=== PATIENT | female | born 1950 | race Two or more races ===

== ENCOUNTER 2021-09-27 10:30 | Inpatient (IN) | payer MEDICAID ==
[~2021-09-27] VITALS: Ht 157.5 cm; Wt 64.9 kg
[2021-09-27] MEDS ORDERED: APIX5TAB PO (11:12)
[2021-09-27 11:22] LABS: BASOPHILS % (AUTO) 0.7 % (0.0-2.0); HEMATOCRIT 31 % (33-45); HEMOGLOBIN 10.4 g/dL (11.5-14.8); LYMPHOCYTES # (AUTO) 1.2 K/uL (0.8-4.8); LYMPHOCYTES % (AUTO) 16.1 % (20.0-44.0); MEAN CORPUSCULAR HGB CONC 34 g/dl (31.0-36.0); MEAN CORPUSCULAR VOLUME 89 fL (82-100); MONOCYTES # (AUTO) 0.5 K/uL (0.1-1.30); MONOCYTES % (AUTO) 7.1 % (2.0-12.0); NEUTROPHILS # (AUTO) 5.4 K/uL (1.8-8.9); NEUTROPHILS % (AUTO) 75.1 % (43.0-81.0); PLATELET COUNT (AUTO) 355 K/uL (150-450); WHITE BLOOD COUNT (AUTO) 7.2 K/uL (4.3-11.0)
[2021-09-27] MEDS ORDERED: ERGO500040 PO (11:29)
[2021-09-27] MEDS ORDERED: METO25TA20 PO (11:29)
[2021-09-27] MEDS ORDERED: ANAS1TAB50 PO (11:29)
[2021-09-27] MEDS ORDERED: INSU100V7 SQ (11:29)
[2021-09-27] MEDS ORDERED: INSU100V27 SQ (11:29)
[2021-09-27] MEDS ORDERED: ATOR40TA PO (11:29)
[2021-09-27] MEDS ORDERED: MORPHINE SULFATE INJ 2 MG/ML DISP.SYRIN IV ONE (11:30)
[2021-09-27] MEDS ORDERED: MORPHINE SULFATE INJ 2 MG/ML DISP.SYRIN ONE ×4 (11:32→19:58)
[2021-09-27 11:34] LABS: CARBON DIOXIDE 28 mmol/L (21-32); CHLORIDE 101 mmol/L (98-107); CREATININE 2.5 mg/dL (0.6-1.3); GLUCOSE 272 mg/dL (74-106); POTASSIUM 3.5 mmol/L (3.5-5.1); SODIUM SERUM 135 mmol/L (136-145); UREA NITROGEN, BLOOD 30 mg/dL (7-18)
[2021-09-27 11:39] LABS: ALANINE AMINOTRANSFERASE 17 U/L (12-78); ALBUMIN 2.3 g/dL (3.4-5.0); ALKALINE PHOSPHATASE 117 U/L (46-116); ASPARTATE AMINOTRANSFERASE 14 U/L (15-37); BILIRUBIN,DIRECT 0.1 mg/dL (0.0-0.2); BILIRUBIN,TOTAL 0.3 mg/dL (0.2-1.0); TOTAL PROTEIN, SERUM 6.5 g/dL (6.4-8.2)
[2021-09-27] MEDS ORDERED: IV NS 0.9% 1,000 ML BAG IV ONE (12:30)
[2021-09-27] MEDS ORDERED: MORPHINE SULFATE INJ 2 MG/ML DISP.SYRIN IM PRN (13:30)
[2021-09-27] MEDS ORDERED: Z GUARD REMEDY 4 OZ OINT TP PRN (15:30)
[2021-09-27] MEDS ORDERED: MORPHINE SULFATE INJ 2 MG/ML DISP.SYRIN IV PRN (16:00)
[2021-09-27] MEDS: ERGOCALCIFEROL (VITAMIN D 2) 50,000 UNIT CAPSULE PO SCH (16:07)
[2021-09-27] MEDS ORDERED: APIXABAN 5 MG TABLET PO SCH (17:00)
[2021-09-27] MEDS: INSULIN ASPART/LISPRO 100 UNIT/ML CARTRIDGE SQ SCH (17:30)
[2021-09-27] MEDS ORDERED: INSULIN REGULAR, HUMAN 100 UNIT/ML 10 ML VIAL ONE (17:38)
[2021-09-27] MEDS ORDERED: ATORVASTATIN 40 MG TABLET ONE (17:58)
[2021-09-27] MEDS: ATORVASTATIN 40 MG TABLET PO SCH (18:03)
[2021-09-27] MEDS: MORPHINE SULFATE INJ 2 MG/ML DISP.SYRIN IV PRN ×2 (18:11→20:04)
[2021-09-27] MEDS ORDERED: METOPROLOL TARTRATE 50 MG TABLET ONE (21:09)
[2021-09-27] MEDS: METOPROLOL TARTRATE 25 MG TABLET PO SCH (21:13)
[2021-09-27 21:30] VITALS: BP 153/91
[2021-09-27] MEDS: INSULIN GLARGINE, 100 UNIT/ML CARTRIDGE SQ SCH (22:00)
[2021-09-28] MEDS: MORPHINE SULFATE INJ 2 MG/ML DISP.SYRIN IV PRN ×2 (03:19→05:19)
[2021-09-28] MEDS: ONDANSETRON HCL/PF 4 MG/2 ML VIAL IVP PRN (04:28)
[2021-09-28] MEDS: IV NS 0.9% 1,000 ML IV PRN (06:00)
[2021-09-28 07:09] LABS: BASOPHILS # (AUTO) 0.1 K/uL (0.0-0.2); BASOPHILS % (AUTO) 0.6 % (0.0-2.0); EOSINOPHILS % (AUTO) 1.9 % (0.0-6.0); HEMATOCRIT 29 % (33-45); HEMOGLOBIN 9.8 g/dL (11.5-14.8); LYMPHOCYTES # (AUTO) 1.4 K/uL (0.8-4.8); LYMPHOCYTES % (AUTO) 14.3 % (20.0-44.0); MEAN CORPUSCULAR HGB CONC 33 g/dl (31.0-36.0); MEAN CORPUSCULAR VOLUME 89 fL (82-100); MONOCYTES # (AUTO) 0.5 K/uL (0.1-1.30); MONOCYTES % (AUTO) 5.3 % (2.0-12.0); NEUTROPHILS # (AUTO) 7.7 K/uL (1.8-8.9); NEUTROPHILS % (AUTO) 77.9 % (43.0-81.0); PLATELET COUNT (AUTO) 322 K/uL (150-450); RED BLOOD CELL COUNT(AUTO) 3.28 MIL/uL (4.0-5.2); WHITE BLOOD COUNT (AUTO) 9.8 K/uL (4.3-11.0)
[2021-09-28] MEDS: INSULIN ASPART/LISPRO 100 UNIT/ML CARTRIDGE SQ SCH ×3 (07:30→17:30)
[2021-09-28 08:08] LABS: BILIRUBIN,TOTAL 0.3 mg/dL (0.2-1.0); CALCIUM, SERUM 8.4 mg/dL (8.5-10.1); CREATININE 2.4 mg/dL (0.6-1.3); PHOSPHORUS 3.7 mg/dL (2.5-4.9); POTASSIUM 3.8 mmol/L (3.5-5.1)
[2021-09-28 08:27] LABS: THYROID STIMULATING HORMONE 1.654 uIU/mL (0.358-3.74)
[2021-09-28 08:38] VITALS: BP 108/52
[2021-09-28] MEDS: hydrALAZINE HCL 50 MG TABLET PO SCH ×3 (09:00→17:00)
[2021-09-28] MEDS: NITROGLYCERIN 30 GM TUBE TP SCH ×2 (09:00→20:56)
[2021-09-28] MEDS: METOPROLOL TARTRATE 25 MG TABLET PO SCH ×2 (09:00→20:49)
[2021-09-28] MEDS: ANASTROZOLE 1 MG TABLET PO SCH (09:00)
[2021-09-28] MEDS: MORPHINE SULFATE INJ 4 MG/ML DISP.SYRIN IV PRN (12:00)
[2021-09-28] MEDS ORDERED: ANESTHESIA TRAY IN PYXIS 1 EA TRAY MC ONE (14:55)
[2021-09-28] MEDS ORDERED: BUPIVACAINE 0.5 % PF 150 MG/30 ML VIAL ONE (14:56)
[2021-09-28] MEDS ORDERED: MIDAZOLAM HCL 2 MG/2ML VIAL ONE (15:22)
[2021-09-28] MEDS ORDERED: FENTANYL PF 250MCG/5ML AMPUL ONE (15:22)
[2021-09-28] MEDS ORDERED: SUCCINYLCHOLINE CHLORIDE 20 MG/ML VIAL ONE (15:23)
[2021-09-28 16:03] VITALS: BP 134/62
[2021-09-28] MEDS: ATORVASTATIN 40 MG TABLET PO SCH (18:00)
[2021-09-28 19:40] LABS: HEMOGLOBIN 10.2 g/dL (11.5-14.8)
[2021-09-28] MEDS: INSULIN GLARGINE, 100 UNIT/ML CARTRIDGE SQ SCH (22:00)
[2021-09-29] MEDS: ANCEF 1 GM/50 ML D5W IV SCH ×4 (00:26→11:43)
[2021-09-29] MEDS: MORPHINE SULFATE INJ 4 MG/ML DISP.SYRIN IV PRN (02:34)
[2021-09-29 03:34] VITALS: BP 135/63
[2021-09-29] MEDS: IV NS 0.9% 1,000 ML IV PRN ×2 (04:39→17:53)
[2021-09-29] MEDS: INSULIN ASPART/LISPRO 100 UNIT/ML CARTRIDGE SQ SCH ×3 (07:30→17:47)
[2021-09-29 08:04] LABS: CALCIUM, SERUM 7.5 mg/dL (8.5-10.1); CREATININE 3.3 mg/dL (0.6-1.3); PHOSPHORUS 6.3 mg/dL (2.5-4.9); POTASSIUM 4.2 mmol/L (3.5-5.1)
[2021-09-29 08:50] VITALS: BP 125/69
[2021-09-29 09:31] LABS: BASOPHILS % (AUTO) 0.4 % (0.0-2.0); EOSINOPHILS % (AUTO) 2.2 % (0.0-6.0); HEMATOCRIT 28 % (33-45); LYMPHOCYTES # (AUTO) 1.1 K/uL (0.8-4.8); LYMPHOCYTES % (AUTO) 8.8 % (20.0-44.0); MEAN CORPUSCULAR HGB CONC 33 g/dl (31.0-36.0); MEAN CORPUSCULAR VOLUME 91 fL (82-100); MONOCYTES # (AUTO) 0.8 K/uL (0.1-1.30); MONOCYTES % (AUTO) 6.3 % (2.0-12.0); NEUTROPHILS # (AUTO) 10.1 K/uL (1.8-8.9); NEUTROPHILS % (AUTO) 82.3 % (43.0-81.0); PLATELET COUNT (AUTO) 254 K/uL (150-450); RED BLOOD CELL COUNT(AUTO) 3.03 MIL/uL (4.0-5.2); WHITE BLOOD COUNT (AUTO) 12.3 K/uL (4.3-11.0)
[2021-09-29] MEDS: NITROGLYCERIN 30 GM TUBE TP SCH ×2 (11:25→21:08)
[2021-09-29] MEDS: ANASTROZOLE 1 MG TABLET PO SCH (11:25)
[2021-09-29] MEDS: hydrALAZINE HCL 50 MG TABLET PO SCH ×3 (11:26→17:00)
[2021-09-29] MEDS: METOPROLOL TARTRATE 25 MG TABLET PO SCH ×2 (11:49→21:06)
[2021-09-29] MEDS: SOD FERRIC GLUC 125 MG in IV NS 0.9% 100 ML IV SCH (14:55)
[2021-09-29 16:12] VITALS: BP 112/56
[2021-09-29] MEDS: ATORVASTATIN 40 MG TABLET PO SCH (17:50)
[2021-09-29 20:00] VITALS: BP 112/77
[2021-09-29] MEDS: INSULIN GLARGINE, 100 UNIT/ML CARTRIDGE SQ SCH (22:00)
[2021-09-30] MEDS: HYDROCODONE/APAP 5/325MG TABLET PO PRN ×3 (01:09→23:41)
[2021-09-30] MEDS: IV NS 0.9% 1,000 ML IV PRN ×3 (02:54→23:29)
[2021-09-30] MEDS: INSULIN ASPART/LISPRO 100 UNIT/ML CARTRIDGE SQ SCH ×3 (06:32→17:30)
[2021-09-30 07:09] LABS: BASOPHILS % (AUTO) 0.3 % (0.0-2.0); EOSINOPHILS % (AUTO) 2.6 % (0.0-6.0); HEMATOCRIT 24 % (33-45); HEMOGLOBIN 7.9 g/dL (11.5-14.8); LYMPHOCYTES # (AUTO) 1.3 K/uL (0.8-4.8); MEAN CORPUSCULAR HGB CONC 33 g/dl (31.0-36.0); MEAN CORPUSCULAR VOLUME 91 fL (82-100); MONOCYTES # (AUTO) 0.8 K/uL (0.1-1.30); MONOCYTES % (AUTO) 6.9 % (2.0-12.0); NEUTROPHILS % (AUTO) 79.2 % (43.0-81.0); PLATELET COUNT (AUTO) 230 K/uL (150-450); RED BLOOD CELL COUNT(AUTO) 2.67 MIL/uL (4.0-5.2); WHITE BLOOD COUNT (AUTO) 11.4 K/uL (4.3-11.0)
[2021-09-30 07:46] LABS: CALCIUM, SERUM 7.6 mg/dL (8.5-10.1); CREATININE 3.8 mg/dL (0.6-1.3); PHOSPHORUS 5.4 mg/dL (2.5-4.9); POTASSIUM 4.4 mmol/L (3.5-5.1)
[2021-09-30 08:13] VITALS: BP 118/57
[2021-09-30] MEDS: ANASTROZOLE 1 MG TABLET PO SCH (08:16)
[2021-09-30] MEDS: METOPROLOL TARTRATE 25 MG TABLET PO SCH ×2 (08:17→20:54)
[2021-09-30] MEDS: NITROGLYCERIN 30 GM TUBE TP SCH ×2 (08:21→20:53)
[2021-09-30] MEDS: hydrALAZINE HCL 50 MG TABLET PO SCH ×3 (09:00→17:45)
[2021-09-30] MEDS: APIXABAN 5 MG TABLET PO SCH ×2 (09:53→17:47)
[2021-09-30 11:07] LABS: *SPE A/G RATIO 0.7 (0.7-1.7); *SPE ALPHA-1-GLOBULIN 0.3 g/dL (0.0-0.4); *SPE M-SPIKE Not Observed g/dL (Not Observed)
[2021-09-30] MEDS: ONDANSETRON HCL/PF 4 MG/2 ML VIAL IVP PRN (13:18)
[2021-09-30] MEDS: MORPHINE SULFATE INJ 4 MG/ML DISP.SYRIN IV PRN (13:18)
[2021-09-30] MEDS: SOD FERRIC GLUC 125 MG in IV NS 0.9% 100 ML IV SCH (16:23)
[2021-09-30 16:36] VITALS: BP 116/70
[2021-09-30] MEDS: ATORVASTATIN 40 MG TABLET PO SCH (18:04)
[2021-09-30 20:00] VITALS: BP 126/93
[2021-09-30] MEDS: INSULIN GLARGINE, 100 UNIT/ML CARTRIDGE SQ SCH (21:39)
[2021-09-30 22:50] LABS: BILIRUBIN,URINE NEGATIVE (NEGATIVE); COLOR,URINE YELLOW (YELLOW); LEUKOCYTE ESTERASE ,URINE NEGATIVE (NEGATIVE); NITRITE, URINE NEGATIVE (NEGATIVE); PROTEIN,URINE 100 mg/dl (NEGATIVE); UGLUCOSE NEGATIVE (NEGATIVE); UROBILINOGEN,URINE 0.2 EU/dL (0.2)
[2021-09-30 23:11] LABS: CREATININE, URINE 121.4 MG/DL (30.0-125.0)
[2021-09-30] MEDS: DOCUSATE SODIUM 100 MG CAPSULE PO PRN (23:41)
[2021-09-30 23:47] LABS: URINE TOTAL PROTEIN 580.9 mg/dL (0-11.9)
[2021-10-01] MEDS: IV NS 0.9% 1,000 ML IV PRN ×2 (05:45→13:46)
[2021-10-01] MEDS: INSULIN ASPART/LISPRO 100 UNIT/ML CARTRIDGE SQ SCH ×3 (06:21→17:25)
[2021-10-01 06:39] LABS: BASOPHILS % (AUTO) 0.5 % (0.0-2.0); EOSINOPHILS % (AUTO) 3.5 % (0.0-6.0); HEMATOCRIT 22 % (33-45); HEMOGLOBIN 7.4 g/dL (11.5-14.8); LYMPHOCYTES # (AUTO) 1.6 K/uL (0.8-4.8); LYMPHOCYTES % (AUTO) 15.6 % (20.0-44.0); MEAN CORPUSCULAR HGB CONC 33 g/dl (31.0-36.0); MEAN CORPUSCULAR VOLUME 91 fL (82-100); MONOCYTES # (AUTO) 0.7 K/uL (0.1-1.30); MONOCYTES % (AUTO) 7.1 % (2.0-12.0); NEUTROPHILS # (AUTO) 7.3 K/uL (1.8-8.9); NEUTROPHILS % (AUTO) 73.3 % (43.0-81.0); PLATELET COUNT (AUTO) 236 K/uL (150-450); RED BLOOD CELL COUNT(AUTO) 2.44 MIL/uL (4.0-5.2)
[2021-10-01] MEDS ORDERED: DEXTROSE 50%-WATER 50 ML DISP.SYRIN ONE (06:44)
[2021-10-01] MEDS ORDERED: DEXTROSE 50%-WATER 50 ML DISP.SYRIN IVP ONE (07:00)
[2021-10-01 07:17] LABS: CALCIUM, SERUM 8.3 mg/dL (8.5-10.1); CREATININE 3.5 mg/dL (0.6-1.3); MAGNESIUM 2.5 mg/dL (1.8-2.4); PHOSPHORUS 5.5 mg/dL (2.5-4.9); POTASSIUM 3.9 mmol/L (3.5-5.1)
[2021-10-01 08:00] VITALS: BP 124/71
[2021-10-01] MEDS: hydrALAZINE HCL 50 MG TABLET PO SCH ×3 (08:23→16:47)
[2021-10-01] MEDS: ANASTROZOLE 1 MG TABLET PO SCH (08:23)
[2021-10-01] MEDS: METOPROLOL TARTRATE 25 MG TABLET PO SCH ×2 (08:24→22:10)
[2021-10-01] MEDS: APIXABAN 5 MG TABLET PO SCH ×3 (08:27→17:14)
[2021-10-01] MEDS: DOCUSATE SODIUM 100 MG CAPSULE PO PRN (08:33)
[2021-10-01] MEDS: NITROGLYCERIN 30 GM TUBE TP SCH ×2 (09:19→22:11)
[2021-10-01 11:03] LABS: EOSINOPHIL,URINE None Seen
[2021-10-01] MEDS ORDERED: POLYETHYLENE GLYCOL 3350 17 GM POWD.PACK PO ONE (13:30)
[2021-10-01] MEDS: SOD FERRIC GLUC 125 MG in IV NS 0.9% 100 ML IV SCH (15:28)
[2021-10-01 16:00] VITALS: BP 146/71
[2021-10-01] MEDS: Sodium Bicarbonate 100 MEQ in IV D5 / 0.2% NACL 1,000 ML IV PRN (16:22)
[2021-10-01] MEDS: ATORVASTATIN 40 MG TABLET PO SCH (17:13)
[2021-10-01] MEDS: BLOOD SUGAR DIAGNOSTIC 1 EACH STRIP IN SCH ×2 (17:22→22:34)
[2021-10-01 20:49] VITALS: BP 139/73
[2021-10-01] MEDS: MORPHINE SULFATE INJ 4 MG/ML DISP.SYRIN IV PRN (22:21)
[2021-10-01] MEDS: INSULIN GLARGINE, 100 UNIT/ML CARTRIDGE SQ SCH (22:39)
[2021-10-02] VITALS: BP 139/73
[2021-10-02] MEDS: Sodium Bicarbonate 100 MEQ in IV D5 / 0.2% NACL 1,000 ML IV PRN ×2 (04:59→09:21)
[2021-10-02] MEDS: BLOOD SUGAR DIAGNOSTIC 1 EACH STRIP IN SCH ×4 (06:19→22:01)
[2021-10-02] MEDS: INSULIN ASPART/LISPRO 100 UNIT/ML CARTRIDGE SQ SCH ×3 (06:21→18:22)
[2021-10-02 08:00] VITALS: BP 153/62
[2021-10-02 08:34] LABS: BASOPHILS % (AUTO) 0.4 % (0.0-2.0); EOSINOPHILS % (AUTO) 2.9 % (0.0-6.0); HEMATOCRIT 22 % (33-45); HEMOGLOBIN 7.4 g/dL (11.5-14.8); LYMPHOCYTES # (AUTO) 0.9 K/uL (0.8-4.8); LYMPHOCYTES % (AUTO) 9.7 % (20.0-44.0); MEAN CORPUSCULAR HGB CONC 34 g/dl (31.0-36.0); MEAN CORPUSCULAR VOLUME 90 fL (82-100); MONOCYTES # (AUTO) 0.7 K/uL (0.1-1.30); MONOCYTES % (AUTO) 7.2 % (2.0-12.0); NEUTROPHILS # (AUTO) 7.6 K/uL (1.8-8.9); NEUTROPHILS % (AUTO) 79.8 % (43.0-81.0); PLATELET COUNT (AUTO) 246 K/uL (150-450); RED BLOOD CELL COUNT(AUTO) 2.45 MIL/uL (4.0-5.2); WHITE BLOOD COUNT (AUTO) 9.5 K/uL (4.3-11.0)
[2021-10-02 08:52] LABS: CALCIUM, SERUM 7.9 mg/dL (8.5-10.1); MAGNESIUM 2.3 mg/dL (1.8-2.4); PHOSPHORUS 4.2 mg/dL (2.5-4.9); POTASSIUM 3.6 mmol/L (3.5-5.1)
[2021-10-02] MEDS: NITROGLYCERIN 30 GM TUBE TP SCH ×2 (09:22→21:28)
[2021-10-02] MEDS: ANASTROZOLE 1 MG TABLET PO SCH (09:22)
[2021-10-02] MEDS: METOPROLOL TARTRATE 25 MG TABLET PO SCH ×2 (09:23→21:25)
[2021-10-02] MEDS: hydrALAZINE HCL 50 MG TABLET PO SCH ×3 (09:23→18:12)
[2021-10-02] MEDS: APIXABAN 5 MG TABLET PO SCH ×2 (09:26→18:21)
[2021-10-02] MEDS ORDERED: BISACODYL SUPP (10 MG) 10 MG/SUPP.RECT SUPP.RECT RC ONE (09:30)
[2021-10-02] MEDS: SOD FERRIC GLUC 125 MG in IV NS 0.9% 100 ML IV SCH (14:29)
[2021-10-02 16:00] VITALS: BP 122/79
[2021-10-02] MEDS: ATORVASTATIN 40 MG TABLET PO SCH (18:12)
[2021-10-02 20:00] VITALS: BP 133/76
[2021-10-02] MEDS: INSULIN GLARGINE, 100 UNIT/ML CARTRIDGE SQ SCH (22:00)
[2021-10-03] MEDS: BLOOD SUGAR DIAGNOSTIC 1 EACH STRIP IN SCH ×4 (06:05→22:01)
[2021-10-03] MEDS: DEXTROSE 50%-WATER 50 ML DISP.SYRIN IV PRN (06:05)
[2021-10-03 07:17] LABS: BASOPHILS % (AUTO) 0.1 % (0.0-2.0); EOSINOPHILS % (AUTO) 0.6 % (0.0-6.0); HEMATOCRIT 26 % (33-45); HEMOGLOBIN 8.5 g/dL (11.5-14.8); LYMPHOCYTES # (AUTO) 0.6 K/uL (0.8-4.8); LYMPHOCYTES % (AUTO) 4.6 % (20.0-44.0); MEAN CORPUSCULAR HGB CONC 33 g/dl (31.0-36.0); MEAN CORPUSCULAR VOLUME 91 fL (82-100); MONOCYTES # (AUTO) 0.8 K/uL (0.1-1.30); MONOCYTES % (AUTO) 6.5 % (2.0-12.0); NEUTROPHILS # (AUTO) 10.6 K/uL (1.8-8.9); NEUTROPHILS % (AUTO) 88.2 % (43.0-81.0); PLATELET COUNT (AUTO) 281 K/uL (150-450); RED BLOOD CELL COUNT(AUTO) 2.84 MIL/uL (4.0-5.2); WHITE BLOOD COUNT (AUTO) 12.1 K/uL (4.3-11.0)
[2021-10-03] MEDS: INSULIN ASPART/LISPRO 100 UNIT/ML CARTRIDGE SQ SCH ×3 (07:30→17:30)
[2021-10-03 08:00] VITALS: BP 142/68
[2021-10-03 08:54] LABS: CALCIUM, SERUM 8.5 mg/dL (8.5-10.1); CREATININE 2.7 mg/dL (0.6-1.3); MAGNESIUM 2.3 mg/dL (1.8-2.4); PHOSPHORUS 4.3 mg/dL (2.5-4.9); POTASSIUM 3.5 mmol/L (3.5-5.1)
[2021-10-03] MEDS: METOPROLOL TARTRATE 25 MG TABLET PO SCH ×2 (09:06→21:02)
[2021-10-03] MEDS: hydrALAZINE HCL 50 MG TABLET PO SCH ×3 (09:06→17:20)
[2021-10-03] MEDS: ANASTROZOLE 1 MG TABLET PO SCH (09:06)
[2021-10-03] MEDS: APIXABAN 5 MG TABLET PO SCH ×2 (09:08→17:21)
[2021-10-03] MEDS: NITROGLYCERIN 30 GM TUBE TP SCH ×2 (09:13→21:00)
[2021-10-03] MEDS ORDERED: KEY,NONCONTROL,TO KEEP IN PYXI 1 EA MC ONE (10:56)
[2021-10-03] MEDS ORDERED: LACTULOSE UDC 200 G in SODIUM CHLORIDE IRRIG SOLUTION 400 ML IR ONE (11:00)
[2021-10-03 12:00] VITALS: BP 129/64
[2021-10-03] MEDS: SOD FERRIC GLUC 125 MG in IV NS 0.9% 100 ML IV SCH (13:48)
[2021-10-03 16:00] VITALS: BP 126/74
[2021-10-03] MEDS: ATORVASTATIN 40 MG TABLET PO SCH (17:20)
[2021-10-03] MEDS: ACETAMINOPHEN 325 MG TABLET PO PRN (17:35)
[2021-10-03] MEDS: Sodium Bicarbonate 100 MEQ in IV D5 / 0.2% NACL 1,000 ML IV PRN (19:57)
[2021-10-03 20:00] VITALS: BP 118/54
[2021-10-03] MEDS: INSULIN GLARGINE, 100 UNIT/ML CARTRIDGE SQ SCH (22:03)
[2021-10-03] MEDS: HYDROCODONE/APAP 5/325MG TABLET PO PRN (23:05)
[2021-10-04] MEDS: BLOOD SUGAR DIAGNOSTIC 1 EACH STRIP IN SCH ×4 (06:44→22:00)
[2021-10-04] MEDS: INSULIN ASPART/LISPRO 100 UNIT/ML CARTRIDGE SQ SCH (06:45)
[2021-10-04 07:56] LABS: BASOPHILS % (AUTO) 0.4 % (0.0-2.0); EOSINOPHILS % (AUTO) 3.7 % (0.0-6.0); HEMATOCRIT 21 % (33-45); HEMOGLOBIN 7.3 g/dL (11.5-14.8); LYMPHOCYTES # (AUTO) 1.3 K/uL (0.8-4.8); LYMPHOCYTES % (AUTO) 16.4 % (20.0-44.0); MEAN CORPUSCULAR HGB CONC 34 g/dl (31.0-36.0); MEAN CORPUSCULAR VOLUME 89 fL (82-100); MONOCYTES # (AUTO) 0.8 K/uL (0.1-1.30); NEUTROPHILS # (AUTO) 5.3 K/uL (1.8-8.9); NEUTROPHILS % (AUTO) 69.5 % (43.0-81.0); PLATELET COUNT (AUTO) 260 K/uL (150-450); WHITE BLOOD COUNT (AUTO) 7.7 K/uL (4.3-11.0)
[2021-10-04 08:00] VITALS: BP 159/70
[2021-10-04 08:11] LABS: CALCIUM, SERUM 7.6 mg/dL (8.5-10.1); CREATININE 2.5 mg/dL (0.6-1.3); MAGNESIUM 1.9 mg/dL (1.8-2.4); PHOSPHORUS 3.4 mg/dL (2.5-4.9); POTASSIUM 3.5 mmol/L (3.5-5.1)
[2021-10-04] MEDS: METOPROLOL TARTRATE 25 MG TABLET PO SCH ×2 (08:12→22:00)
[2021-10-04] MEDS: hydrALAZINE HCL 50 MG TABLET PO SCH ×3 (08:13→17:07)
[2021-10-04] MEDS: ANASTROZOLE 1 MG TABLET PO SCH (08:13)
[2021-10-04] MEDS: APIXABAN 5 MG TABLET PO SCH ×2 (08:13→17:05)
[2021-10-04] MEDS: NITROGLYCERIN 30 GM TUBE TP SCH ×2 (08:52→22:01)
[2021-10-04] MEDS: DEXTROSE 50%-WATER 50 ML DISP.SYRIN IV PRN (11:16)
[2021-10-04] MEDS: ACETAMINOPHEN 325 MG TABLET PO PRN (12:41)
[2021-10-04] MEDS: ERGOCALCIFEROL (VITAMIN D 2) 50,000 UNIT CAPSULE PO SCH (14:38)
[2021-10-04 16:00] VITALS: BP 142/78
[2021-10-04] MEDS: FERROUS SULFATE (325 MG) 325 MG/TAB TABLET PO SCH (17:07)
[2021-10-04] MEDS: INSULIN REGULAR, HUMAN 100 UNIT/ML 3 ML VIAL SQ PRN (17:15)
[2021-10-04] MEDS: ATORVASTATIN 40 MG TABLET PO SCH (17:34)
[2021-10-04] MEDS: HYDROCODONE/APAP 5/325MG TABLET PO PRN (18:35)
[2021-10-04 20:55] VITALS: BP 127/81
[2021-10-04] MEDS: INSULIN GLARGINE, 100 UNIT/ML CARTRIDGE SQ SCH (22:00)
[2021-10-04] MEDS ORDERED: INSULIN GLARGINE, 100 UNIT/ML CARTRIDGE SQ SCH (22:00)
[2021-10-05] MEDS: HYDROCODONE/APAP 5/325MG TABLET PO PRN ×4 (03:24→20:15)
[2021-10-05] MEDS: BLOOD SUGAR DIAGNOSTIC 1 EACH STRIP IN SCH ×4 (07:31→22:31)
[2021-10-05 07:38] LABS: BASOPHILS # (AUTO) 0.1 K/uL (0.0-0.2); BASOPHILS % (AUTO) 0.6 % (0.0-2.0); EOSINOPHILS % (AUTO) 2.4 % (0.0-6.0); HEMATOCRIT 24 % (33-45); LYMPHOCYTES # (AUTO) 1.3 K/uL (0.8-4.8); LYMPHOCYTES % (AUTO) 13.8 % (20.0-44.0); MEAN CORPUSCULAR HGB CONC 34 g/dl (31.0-36.0); MEAN CORPUSCULAR VOLUME 90 fL (82-100); MONOCYTES # (AUTO) 0.9 K/uL (0.1-1.30); MONOCYTES % (AUTO) 9.7 % (2.0-12.0); NEUTROPHILS % (AUTO) 73.5 % (43.0-81.0); PLATELET COUNT (AUTO) 339 K/uL (150-450); RED BLOOD CELL COUNT(AUTO) 2.64 MIL/uL (4.0-5.2); WHITE BLOOD COUNT (AUTO) 9.5 K/uL (4.3-11.0)
[2021-10-05 08:00] VITALS: BP 138/82
[2021-10-05 08:14] LABS: CALCIUM, SERUM 8.1 mg/dL (8.5-10.1); CREATININE 2.5 mg/dL (0.6-1.3); MAGNESIUM 2.2 mg/dL (1.8-2.4); PHOSPHORUS 3.6 mg/dL (2.5-4.9); POTASSIUM 3.9 mmol/L (3.5-5.1)
[2021-10-05] MEDS: APIXABAN 5 MG TABLET PO SCH ×2 (08:16→17:12)
[2021-10-05] MEDS: ANASTROZOLE 1 MG TABLET PO SCH (08:17)
[2021-10-05] MEDS: hydrALAZINE HCL 50 MG TABLET PO SCH ×3 (08:17→17:09)
[2021-10-05] MEDS: FERROUS SULFATE (325 MG) 325 MG/TAB TABLET PO SCH ×2 (08:17→17:09)
[2021-10-05] MEDS: ASCORBIC ACID 500 MG TABLET PO SCH (08:17)
[2021-10-05] MEDS: NITROGLYCERIN 30 GM TUBE TP SCH ×2 (08:20→22:10)
[2021-10-05] MEDS: METOPROLOL TARTRATE 25 MG TABLET PO SCH ×2 (08:20→22:09)
[2021-10-05] MEDS: DOCUSATE SODIUM 100 MG CAPSULE PO PRN ×2 (09:51→22:13)
[2021-10-05] MEDS: INSULIN REGULAR, HUMAN 100 UNIT/ML 3 ML VIAL SQ PRN ×3 (11:14→22:28)
[2021-10-05 16:00] VITALS: BP 155/89
[2021-10-05] MEDS: ATORVASTATIN 40 MG TABLET PO SCH (17:09)
[2021-10-05] MEDS: ONDANSETRON HCL/PF 4 MG/2 ML VIAL IVP PRN (17:39)
[2021-10-05 20:00] VITALS: BP 156/78
[2021-10-05] MEDS ORDERED: SENNOSIDES 8.6 MG TABLET PO PRN (21:30)
[2021-10-05] MEDS ORDERED: POLYETHYLENE GLYCOL 3350 17 GM POWD.PACK PO PRN (21:30)
[2021-10-05] MEDS: INSULIN GLARGINE, 100 UNIT/ML CARTRIDGE SQ SCH (22:30)
[2021-10-06] MEDS: HYDROCODONE/APAP 5/325MG TABLET PO PRN ×2 (02:46→20:10)
[2021-10-06] MEDS: BLOOD SUGAR DIAGNOSTIC 1 EACH STRIP IN SCH ×4 (06:41→21:13)
[2021-10-06] MEDS: INSULIN REGULAR, HUMAN 100 UNIT/ML 3 ML VIAL SQ PRN ×3 (06:41→21:30)
[2021-10-06 06:52] LABS: BASOPHILS # (AUTO) 0.1 K/uL (0.0-0.2); BASOPHILS % (AUTO) 0.6 % (0.0-2.0); EOSINOPHILS % (AUTO) 2.8 % (0.0-6.0); HEMATOCRIT 23 % (33-45); HEMOGLOBIN 7.6 g/dL (11.5-14.8); LYMPHOCYTES # (AUTO) 1.4 K/uL (0.8-4.8); LYMPHOCYTES % (AUTO) 16.1 % (20.0-44.0); MEAN CORPUSCULAR HGB CONC 34 g/dl (31.0-36.0); MEAN CORPUSCULAR VOLUME 90 fL (82-100); MONOCYTES % (AUTO) 11.4 % (2.0-12.0); NEUTROPHILS # (AUTO) 5.9 K/uL (1.8-8.9); NEUTROPHILS % (AUTO) 69.1 % (43.0-81.0); PLATELET COUNT (AUTO) 339 K/uL (150-450); RED BLOOD CELL COUNT(AUTO) 2.51 MIL/uL (4.0-5.2); WHITE BLOOD COUNT (AUTO) 8.6 K/uL (4.3-11.0)
[2021-10-06 07:00] LABS: CALCIUM, SERUM 8.1 mg/dL (8.5-10.1); CREATININE 2.3 mg/dL (0.6-1.3); MAGNESIUM 2.2 mg/dL (1.8-2.4)
[2021-10-06 08:00] VITALS: BP 163/88
[2021-10-06] MEDS: ASCORBIC ACID 500 MG TABLET PO SCH (09:24)
[2021-10-06] MEDS: FERROUS SULFATE (325 MG) 325 MG/TAB TABLET PO SCH ×2 (09:24→16:17)
[2021-10-06] MEDS: ANASTROZOLE 1 MG TABLET PO SCH (09:24)
[2021-10-06] MEDS: hydrALAZINE HCL 50 MG TABLET PO SCH ×3 (09:25→16:17)
[2021-10-06] MEDS: METOPROLOL TARTRATE 25 MG TABLET PO SCH ×2 (09:25→21:12)
[2021-10-06] MEDS: APIXABAN 5 MG TABLET PO SCH ×2 (09:27→16:19)
[2021-10-06] MEDS: NITROGLYCERIN 30 GM TUBE TP SCH ×2 (09:33→21:13)
[2021-10-06 16:06] VITALS: BP 127/66
[2021-10-06] MEDS: GLUCERNA SHAKE 237 ML CAN PO SCH (16:18)
[2021-10-06] MEDS: ATORVASTATIN 40 MG TABLET PO SCH (17:41)
[2021-10-06] MEDS: ONDANSETRON HCL/PF 4 MG/2 ML VIAL IVP PRN (17:44)
[2021-10-06 21:04] VITALS: BP 150/84
[2021-10-06] MEDS: INSULIN GLARGINE, 100 UNIT/ML CARTRIDGE SQ SCH (21:28)
[2021-10-07] MEDS: HYDROCODONE/APAP 5/325MG TABLET PO PRN ×2 (04:32→12:07)
[2021-10-07] MEDS: BLOOD SUGAR DIAGNOSTIC 1 EACH STRIP IN SCH ×4 (06:54→21:39)
[2021-10-07 07:24] LABS: BASOPHILS % (AUTO) 0.5 % (0.0-2.0); EOSINOPHILS % (AUTO) 2.5 % (0.0-6.0); HEMATOCRIT 24 % (33-45); HEMOGLOBIN 8.1 g/dL (11.5-14.8); LYMPHOCYTES # (AUTO) 1.3 K/uL (0.8-4.8); MEAN CORPUSCULAR HGB CONC 33 g/dl (31.0-36.0); MEAN CORPUSCULAR VOLUME 90 fL (82-100); MONOCYTES # (AUTO) 0.9 K/uL (0.1-1.30); MONOCYTES % (AUTO) 8.8 % (2.0-12.0); NEUTROPHILS # (AUTO) 7.6 K/uL (1.8-8.9); NEUTROPHILS % (AUTO) 75.2 % (43.0-81.0); PLATELET COUNT (AUTO) 376 K/uL (150-450); WHITE BLOOD COUNT (AUTO) 10.1 K/uL (4.3-11.0)
[2021-10-07 07:55] LABS: CALCIUM, SERUM 8.2 mg/dL (8.5-10.1); CREATININE 2.2 mg/dL (0.6-1.3); MAGNESIUM 2.1 mg/dL (1.8-2.4); PHOSPHORUS 3.6 mg/dL (2.5-4.9); POTASSIUM 3.9 mmol/L (3.5-5.1)
[2021-10-07 08:00] VITALS: BP 171/81
[2021-10-07] MEDS: ANASTROZOLE 1 MG TABLET PO SCH (08:24)
[2021-10-07] MEDS: FERROUS SULFATE (325 MG) 325 MG/TAB TABLET PO SCH ×2 (08:25→16:47)
[2021-10-07] MEDS: METOPROLOL TARTRATE 25 MG TABLET PO SCH ×2 (08:26→21:28)
[2021-10-07] MEDS: hydrALAZINE HCL 50 MG TABLET PO SCH ×3 (08:26→16:47)
[2021-10-07] MEDS: ASCORBIC ACID 500 MG TABLET PO SCH (08:26)
[2021-10-07] MEDS: APIXABAN 5 MG TABLET PO SCH ×2 (08:27→16:47)
[2021-10-07] MEDS: NITROGLYCERIN 30 GM TUBE TP SCH ×2 (08:31→21:29)
[2021-10-07] MEDS: GLUCERNA SHAKE 237 ML CAN PO SCH ×2 (08:34→16:43)
[2021-10-07] MEDS: INSULIN REGULAR, HUMAN 100 UNIT/ML 3 ML VIAL SQ PRN ×2 (12:03→21:49)
[2021-10-07] MEDS ORDERED: FERR325T28 PO (13:30)
[2021-10-07 16:00] VITALS: BP 125/65
[2021-10-07] MEDS: ATORVASTATIN 40 MG TABLET PO SCH (17:39)
[2021-10-07 20:00] VITALS: BP 138/62
[2021-10-07] MEDS: INSULIN GLARGINE, 100 UNIT/ML CARTRIDGE SQ SCH (21:47)
[2021-10-08] MEDS: BLOOD SUGAR DIAGNOSTIC 1 EACH STRIP IN SCH ×4 (06:14→22:34)
[2021-10-08 08:00] VITALS: BP 140/90
[2021-10-08] MEDS: GLUCERNA SHAKE 237 ML CAN PO SCH ×2 (09:25→16:24)
[2021-10-08] MEDS: FERROUS SULFATE (325 MG) 325 MG/TAB TABLET PO SCH ×2 (09:26→16:22)
[2021-10-08] MEDS: ANASTROZOLE 1 MG TABLET PO SCH (09:26)
[2021-10-08] MEDS: ASCORBIC ACID 500 MG TABLET PO SCH (09:26)
[2021-10-08] MEDS: METOPROLOL TARTRATE 25 MG TABLET PO SCH ×2 (09:26→21:48)
[2021-10-08] MEDS: APIXABAN 5 MG TABLET PO SCH ×2 (09:27→16:23)
[2021-10-08] MEDS: hydrALAZINE HCL 50 MG TABLET PO SCH ×3 (09:27→16:24)
[2021-10-08] MEDS: NITROGLYCERIN 30 GM TUBE TP SCH ×2 (09:33→21:49)
[2021-10-08] MEDS: HYDROCODONE/APAP 5/325MG TABLET PO PRN ×2 (11:01→16:24)
[2021-10-08] MEDS: INSULIN REGULAR, HUMAN 100 UNIT/ML 3 ML VIAL SQ PRN ×3 (11:58→22:31)
[2021-10-08 16:00] VITALS: BP 134/66
[2021-10-08] MEDS: ATORVASTATIN 40 MG TABLET PO SCH (17:25)
[2021-10-08] MEDS: INSULIN GLARGINE, 100 UNIT/ML CARTRIDGE SQ SCH (22:35)
[2021-10-09 08:00] VITALS: BP 181/92
[2021-10-09] MEDS: METOPROLOL TARTRATE 25 MG TABLET PO SCH ×2 (08:45→20:53)
[2021-10-09] MEDS: hydrALAZINE HCL 50 MG TABLET PO SCH ×3 (08:46→17:05)
[2021-10-09] MEDS: ASCORBIC ACID 500 MG TABLET PO SCH (08:46)
[2021-10-09] MEDS: FERROUS SULFATE (325 MG) 325 MG/TAB TABLET PO SCH ×2 (08:46→17:04)
[2021-10-09] MEDS: ANASTROZOLE 1 MG TABLET PO SCH (08:46)
[2021-10-09] MEDS: GLUCERNA SHAKE 237 ML CAN PO SCH ×2 (08:47→17:05)
[2021-10-09] MEDS: APIXABAN 5 MG TABLET PO SCH ×2 (08:48→17:04)
[2021-10-09] MEDS: NITROGLYCERIN 30 GM TUBE TP SCH ×2 (08:50→20:55)
[2021-10-09] MEDS: BLOOD SUGAR DIAGNOSTIC 1 EACH STRIP IN SCH ×4 (10:57→22:24)
[2021-10-09] MEDS: INSULIN REGULAR, HUMAN 100 UNIT/ML 3 ML VIAL SQ PRN ×2 (12:42→22:34)
[2021-10-09] MEDS: HYDROCODONE/APAP 5/325MG TABLET PO PRN ×2 (13:23→20:51)
[2021-10-09 16:00] VITALS: BP 143/63
[2021-10-09] MEDS: ATORVASTATIN 40 MG TABLET PO SCH (17:04)
[2021-10-09 20:00] VITALS: BP 147/65
[2021-10-09] MEDS: INSULIN GLARGINE, 100 UNIT/ML CARTRIDGE SQ SCH (22:32)
[2021-10-10] MEDS: HYDROCODONE/APAP 5/325MG TABLET PO PRN ×3 (01:33→20:26)
[2021-10-10] MEDS: DEXTROSE 50%-WATER 50 ML DISP.SYRIN IV PRN (02:19)
[2021-10-10] MEDS: BLOOD SUGAR DIAGNOSTIC 1 EACH STRIP IN SCH ×4 (07:04→21:42)
[2021-10-10] MEDS: INSULIN REGULAR, HUMAN 100 UNIT/ML 3 ML VIAL SQ PRN ×3 (07:06→21:55)
[2021-10-10 08:00] VITALS: BP 165/73
[2021-10-10] MEDS: GLUCERNA SHAKE 237 ML CAN PO SCH ×2 (08:51→17:43)
[2021-10-10] MEDS: FERROUS SULFATE (325 MG) 325 MG/TAB TABLET PO SCH ×2 (08:52→17:42)
[2021-10-10] MEDS: ANASTROZOLE 1 MG TABLET PO SCH (08:52)
[2021-10-10] MEDS: ASCORBIC ACID 500 MG TABLET PO SCH (08:52)
[2021-10-10] MEDS: METOPROLOL TARTRATE 25 MG TABLET PO SCH ×2 (08:52→20:26)
[2021-10-10] MEDS: hydrALAZINE HCL 50 MG TABLET PO SCH ×3 (08:53→17:42)
[2021-10-10] MEDS: APIXABAN 5 MG TABLET PO SCH ×2 (08:53→17:43)
[2021-10-10] MEDS: NITROGLYCERIN 30 GM TUBE TP SCH ×2 (08:54→20:30)
[2021-10-10] MEDS: CEPHALEXIN MONOHYDRATE 250 MG CAPSULE PO SCH ×2 (14:34→20:26)
[2021-10-10 16:00] VITALS: BP_SYST 140; BP_SYST 166; BP_DIAS 74; BP_DIAS 86
[2021-10-10] MEDS: ATORVASTATIN 40 MG TABLET PO SCH (17:42)
[2021-10-10 20:00] VITALS: BP 153/90
[2021-10-10] MEDS: INSULIN GLARGINE, 100 UNIT/ML CARTRIDGE SQ SCH (21:58)
[2021-10-11] MEDS: HYDROCODONE/APAP 5/325MG TABLET PO PRN ×2 (02:56→21:15)
[2021-10-11] MEDS: CEPHALEXIN MONOHYDRATE 250 MG CAPSULE PO SCH ×3 (04:44→21:14)
[2021-10-11 06:15] LABS: BASOPHILS # (AUTO) 0.1 K/uL (0.0-0.2); BASOPHILS % (AUTO) 0.6 % (0.0-2.0); EOSINOPHILS % (AUTO) 2.8 % (0.0-6.0); HEMATOCRIT 24 % (33-45); LYMPHOCYTES # (AUTO) 1.3 K/uL (0.8-4.8); LYMPHOCYTES % (AUTO) 15.4 % (20.0-44.0); MEAN CORPUSCULAR HGB CONC 33 g/dl (31.0-36.0); MEAN CORPUSCULAR VOLUME 92 fL (82-100); MONOCYTES # (AUTO) 0.6 K/uL (0.1-1.30); MONOCYTES % (AUTO) 7.4 % (2.0-12.0); NEUTROPHILS # (AUTO) 6.2 K/uL (1.8-8.9); NEUTROPHILS % (AUTO) 73.8 % (43.0-81.0); PLATELET COUNT (AUTO) 412 K/uL (150-450); RED BLOOD CELL COUNT(AUTO) 2.67 MIL/uL (4.0-5.2); WHITE BLOOD COUNT (AUTO) 8.4 K/uL (4.3-11.0)
[2021-10-11] MEDS: BLOOD SUGAR DIAGNOSTIC 1 EACH STRIP IN SCH ×4 (06:31→21:15)
[2021-10-11] MEDS: INSULIN REGULAR, HUMAN 100 UNIT/ML 3 ML VIAL SQ PRN ×4 (06:39→21:58)
[2021-10-11 06:41] LABS: CALCIUM, SERUM 8.1 mg/dL (8.5-10.1); POTASSIUM 4.4 mmol/L (3.5-5.1)
[2021-10-11] MEDS: GLUCERNA SHAKE 237 ML CAN PO SCH ×2 (08:59→16:14)
[2021-10-11] MEDS: ANASTROZOLE 1 MG TABLET PO SCH (09:09)
[2021-10-11] MEDS: FERROUS SULFATE (325 MG) 325 MG/TAB TABLET PO SCH ×2 (09:09→16:14)
[2021-10-11] MEDS: METOPROLOL TARTRATE 25 MG TABLET PO SCH ×2 (09:09→21:14)
[2021-10-11] MEDS: hydrALAZINE HCL 50 MG TABLET PO SCH ×3 (09:09→16:13)
[2021-10-11] MEDS: ASCORBIC ACID 500 MG TABLET PO SCH (09:09)
[2021-10-11] MEDS: APIXABAN 5 MG TABLET PO SCH ×2 (09:10→16:14)
[2021-10-11] MEDS: NITROGLYCERIN 30 GM TUBE TP SCH ×2 (09:13→21:14)
[2021-10-11] MEDS: ERGOCALCIFEROL (VITAMIN D 2) 50,000 UNIT CAPSULE PO SCH (16:13)
[2021-10-11] MEDS: ATORVASTATIN 40 MG TABLET PO SCH (17:48)
[2021-10-11] MEDS: INSULIN GLARGINE, 100 UNIT/ML CARTRIDGE SQ SCH (21:57)
[2021-10-12] MEDS: HYDROCODONE/APAP 5/325MG TABLET PO PRN ×3 (02:31→13:06)
[2021-10-12] MEDS: CEPHALEXIN MONOHYDRATE 250 MG CAPSULE PO SCH ×3 (06:10→21:10)
[2021-10-12] MEDS: BLOOD SUGAR DIAGNOSTIC 1 EACH STRIP IN SCH ×4 (06:11→21:21)
[2021-10-12] MEDS: INSULIN REGULAR, HUMAN 100 UNIT/ML 3 ML VIAL SQ PRN ×2 (06:42→21:25)
[2021-10-12 08:00] VITALS: BP 152/81
[2021-10-12] MEDS: GLUCERNA SHAKE 237 ML CAN PO SCH ×2 (08:52→16:22)
[2021-10-12] MEDS: hydrALAZINE HCL 50 MG TABLET PO SCH ×3 (08:53→16:21)
[2021-10-12] MEDS: METOPROLOL TARTRATE 25 MG TABLET PO SCH ×2 (08:53→21:10)
[2021-10-12] MEDS: APIXABAN 5 MG TABLET PO SCH ×2 (08:54→16:22)
[2021-10-12] MEDS: FERROUS SULFATE (325 MG) 325 MG/TAB TABLET PO SCH ×2 (08:54→16:21)
[2021-10-12] MEDS: ANASTROZOLE 1 MG TABLET PO SCH (08:54)
[2021-10-12] MEDS: ASCORBIC ACID 500 MG TABLET PO SCH (08:54)
[2021-10-12] MEDS: NITROGLYCERIN 30 GM TUBE TP SCH ×2 (08:55→21:00)
[2021-10-12 16:00] VITALS: BP 146/66
[2021-10-12] MEDS ORDERED: CEPH500C2 PO (17:20)
[2021-10-12] MEDS: ATORVASTATIN 40 MG TABLET PO SCH (17:39)
[2021-10-12 20:41] VITALS: BP 129/70
[2021-10-12] MEDS: INSULIN GLARGINE, 100 UNIT/ML CARTRIDGE SQ SCH (21:23)
[2021-10-13] MEDS: HYDROCODONE/APAP 5/325MG TABLET PO PRN ×2 (05:32→15:09)
[2021-10-13] MEDS: CEPHALEXIN MONOHYDRATE 250 MG CAPSULE PO SCH ×3 (05:33→20:22)
[2021-10-13] MEDS: BLOOD SUGAR DIAGNOSTIC 1 EACH STRIP IN SCH ×4 (06:38→21:33)
[2021-10-13] MEDS: INSULIN REGULAR, HUMAN 100 UNIT/ML 3 ML VIAL SQ PRN ×4 (06:38→21:36)
[2021-10-13 08:00] VITALS: BP 163/86
[2021-10-13] MEDS: ASCORBIC ACID 500 MG TABLET PO SCH (09:24)
[2021-10-13] MEDS: ANASTROZOLE 1 MG TABLET PO SCH (09:25)
[2021-10-13] MEDS: APIXABAN 5 MG TABLET PO SCH ×2 (09:25→16:10)
[2021-10-13] MEDS: hydrALAZINE HCL 50 MG TABLET PO SCH ×3 (09:25→16:07)
[2021-10-13] MEDS: FERROUS SULFATE (325 MG) 325 MG/TAB TABLET PO SCH ×2 (09:26→16:07)
[2021-10-13] MEDS: METOPROLOL TARTRATE 25 MG TABLET PO SCH ×2 (09:26→20:23)
[2021-10-13] MEDS: GLUCERNA SHAKE 237 ML CAN PO SCH ×2 (09:26→16:07)
[2021-10-13] MEDS: NITROGLYCERIN 30 GM TUBE TP SCH ×2 (09:27→20:23)
[2021-10-13 16:00] VITALS: BP 167/75
[2021-10-13] MEDS: ATORVASTATIN 40 MG TABLET PO SCH (17:55)
[2021-10-13 20:00] VITALS: BP 150/86
[2021-10-13] MEDS: INSULIN GLARGINE, 100 UNIT/ML CARTRIDGE SQ SCH (21:34)
[2021-10-14] MEDS: HYDROCODONE/APAP 5/325MG TABLET PO PRN (02:16)
[2021-10-14] MEDS: CEPHALEXIN MONOHYDRATE 250 MG CAPSULE PO SCH ×2 (04:39→12:34)
[2021-10-14] MEDS: BLOOD SUGAR DIAGNOSTIC 1 EACH STRIP IN SCH ×2 (06:33→12:32)
[2021-10-14] MEDS: INSULIN REGULAR, HUMAN 100 UNIT/ML 3 ML VIAL SQ PRN ×2 (06:33→12:37)
[2021-10-14] MEDS: FERROUS SULFATE (325 MG) 325 MG/TAB TABLET PO SCH (08:58)
[2021-10-14] MEDS: METOPROLOL TARTRATE 25 MG TABLET PO SCH (08:59)
[2021-10-14] MEDS: ASCORBIC ACID 500 MG TABLET PO SCH (08:59)
[2021-10-14] MEDS: hydrALAZINE HCL 50 MG TABLET PO SCH ×2 (08:59→12:36)
[2021-10-14] MEDS: ANASTROZOLE 1 MG TABLET PO SCH (08:59)
[2021-10-14] MEDS: APIXABAN 5 MG TABLET PO SCH (09:00)
[2021-10-14] MEDS: GLUCERNA SHAKE 237 ML CAN PO SCH (09:01)
[2021-10-14] MEDS: NITROGLYCERIN 30 GM TUBE TP SCH (09:04)
[2021-10-14 12:36] VITALS: BP 121/88
== END 2021-10-14 17:18 | DRG 912 ==
LOC: ER 10:34 → TRANSITION 12:07 → TELE 20:46 → MED 21:33
PROVIDERS: ADMIT Nurse Practitioner Acute Care; ATTEND Nurse Practitioner Acute Care
PROC: 0QS706Z Reposition Left Upper Femur with Intramedullary Internal Fixation Device, Open Approach (ICD-10-PCS; principal; 2021-09-28)
DX: S72.145A Nondisplaced intertrochanteric fracture of left femur, initial encounter for closed fracture (principal); S32.592A Other specified fracture of left pubis, initial encounter for closed fracture; N17.0 Acute kidney failure with tubular necrosis; E43 Unspecified severe protein-calorie malnutrition; D68.59 Other primary thrombophilia; E87.1 Hypo-osmolality and hyponatremia; D63.8 Anemia in other chronic diseases classified elsewhere; E11.22 Type 2 diabetes mellitus with diabetic chronic kidney disease; E88.09 Other disorders of plasma-protein metabolism, not elsewhere classified; W18.30XA Fall on same level, unspecified, initial encounter; I12.9 Hypertensive chronic kidney disease with stage 1 through stage 4 chronic kidney disease, or unspecified chronic kidney disease; N18.9 Chronic kidney disease, unspecified; Z20.822 Contact with and (suspected) exposure to COVID-19; I48.91 Unspecified atrial fibrillation; E78.5 Hyperlipidemia, unspecified; Z85.3 Personal history of malignant neoplasm of breast; Z90.11 Acquired absence of right breast and nipple; K59.00 Constipation, unspecified; D50.9 Iron deficiency anemia, unspecified; Z79.01 Long term (current) use of anticoagulants; Z68.26 Body mass index [BMI] 26.0-26.9, adult; Y93.9 Activity, unspecified; Y92.009 Unspecified place in unspecified non-institutional (private) residence as the place of occurrence of the external cause; Z79.4 Long term (current) use of insulin; H54.8 Legal blindness, as defined in USA
CPT/HCPCS: 36415; 70450-TC; 71045-TC; 72192-TC; 73020; 73502; 74018; 76770-TC; 80048-TC; 80053-TC; 80061-TC; 80076-TC; 81001; 82550-TC; 82570-TC; 82962-TC; 83540-TC; 83735-TC; 83970; 84100-TC; 84155; 84155-TC; 84165; 84300-TC; 84443-TC; 84484-TC; 85025-TC; 85027-TC; 85610-TC; 85730-TC; 86850-TC; 87081-TC; 93307-TC; 97110-TC; 97112-TC; 97116-TC; 97530-TC; A4217; A6209; A6253; C1713; G0378; J0330; J0690; J1815; J2250; J2270; J2370; J2405; J2704; J2765; J2916; J3010; J3490; J7030; J7060